=== PATIENT | female | born 1985 | race Caucasian/White ===

== ENCOUNTER → 2017-04-27 | Day surgery (SDC) | payer BC, OTHER ==
[~2017-04-27] VITALS: Ht 165.1 cm; Wt 61.2 kg
[~2017-04-27] MED LIST: HYDROCORTISONE28 GM TP; IBUPROFEN 600600 M1 PO; JOLIVETTE0.35 MG PO; PREDNISONE 5 MG5 MG PO; TRINATE TABLET1 TAB PO
--- NOTE | ~2017-04-27 | O ---
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 PROCEDURE: Diagnostic arthroscopy of the right knee and limited debridement of patellar chondromalacia and limited lateral retinacular release. SURGEON: Paulo Teresa MD INDICATIONS: This very fit, active 31-year-old female has had chronic problems with patellar instability since early teenage years. I have seen her in the past and in the distant past performed an arthroscopic lateral release and later an open medial peripatellar retinaculum advancement. She has done quite nicely over the past 10-12 years, but with some intermittent recurrent symptoms. Now, she is trying to remain fit and active and having difficulty with persistent and recurrent knee pain. This seems to be more along the anterior lateral aspect at the mid and upper pole of the patella where she notes some occasional crepitus. Clinically, the patella seems to track nicely and there is no significant crepitus other indications of significant patellar problems; however, her symptoms are significant and unresponsive. We did a preoperative MRI study, which shows only minor chondromalacia and no clear abnormalities, which would explain her symptoms. I have encouraged conservative management if possible, but she finds she simply cannot continue on aggressive active lifestyle given her ongoing knee symptoms and therefore wants to go ahead with 1 more diagnostic look with treatment as indicated at that point. DESCRIPTION OF PROCEDURE: The patient was taken to the operating room where she was placed under general anesthetic. The right knee was gently examined. The knee demonstrates excellent range of motion. The patella is somewhat hypermobile and can be shifted both medially and laterally. There is slight patellar crepitus. The patella seems to track well when the knee is passed through a full arc of motion. There is no significant crepitus at either medial or lateral joint line. A thigh tourniquet was applied and inflated to 275 mmHg. The right knee was meticulously prepped and draped. A lateral suprapatellar inflow cannula was placed. The arthroscope and probe were introduced through parapatellar tendon approaches. The various compartments were sequentially [address] [address] OPERATIVE REPORT Name: RAJINDER PINO Room #: [facility].#: [id number] Admission: 04/27/17 Attend Phys: Paulo Teresa MD Discharge: Date of : 89 Report #: [id number] visualized and documented with arthroscopic photography. In general, the findings are largely unremarkable. There is good cartilage on the medial femoral condyle and the medial tibial plateau. The medial meniscus appears to be intact and stable without any evidence of damage nor any instability. No debridement here was necessary. The lateral compartment also reveals good cartilage on the lateral femoral condyle and the lateral tibial plateau. The lateral meniscus appears to be intact and stable without any evidence of damage nor any instability. No debridement here was necessary. The intercondylar notch reveals minor synovial hypertrophy, which was resected for visualization purposes. Both the anterior and posterior cruciate ligaments appeared to be present and functioning normally. The knee seems stable with anterior joint Praful test. No debridement here was necessary. The patellofemoral articulation was thoroughly and vigorously inspected. The articular surfaces were actually much better than I might have expected and there seems to be good cartilage over most of the patella and most of the trochlear region of the distal femur. There was a small area of mild chondromalacia at the lateral border of the patella and this was very gently debrided. Near to this, there did seem to be some either persistent or recurrent lateral retinaculum tightness. There were several rather thick bands in this region, which seemed to tether the lateral border of the patella slightly, this is near the area of her subjective complaints and I felt it could be contributing to her ongoing symptoms and it rather limited. Further lateral release was performed removing these persistent areas of either scar or persistent lateral retinaculum. This seemed to free up the patella nicely. There were no other areas of significant scarring or tightness. At this point, the patella once again seemed to track nicely without any significant tilt nor any tendency for significant lateral subluxation. No other significant abnormalities were identified. The tourniquet was deflated. Good hemostasis was established with the use of arthroscopic cautery. All excess fluid was evacuated from the knee and the knee was injected with 20 mL of 0.5% Marcaine with epinephrine and 40 mg of Depo-Medrol. The three small puncture sites were closed with interrupted nylon suture. A sterile dressing was applied with gentle compression over the area of the lateral release. The patient was then awakened and returned to the recovery room in good condition. <ELECTRONICALLY SIGNED> By: Paulo Teresa MD 04/28/17 [id number] Paulo Teresa MD /nt
[2017-04-27 10:00] VITALS: BP 113/77
== END | disposition home or self-care (01) ==
LOC: OR 08:48
DX: M23.51 Chronic instability of knee, right knee (principal); M22.41 Chondromalacia patellae, right knee
CPT/HCPCS: 50010; 50101; 50405; 51038; 54170; 56526; 56616; 62110; 62900; 70005